=== PATIENT | male | born 1960 | race Caucasian/White ===

== ENCOUNTER 2019-03-02 15:48 | Emergency (ER) | payer BC ==
[~2019-03-02] VITALS: Ht 175.3 cm; Wt 81.6 kg
--- NOTE | 2019-03-02 16:49 | PHYS DOC ---
Past Medical History Past Medical History: Arthritis (rheumatoid) Past Surgical History: Other (L elbow) Smoking: Less than 1pk/day Alcohol Use: None Drug Use: None Adult General Chief Complaint Chief Complaint: NEURO SYMPTOMS/DEFICITS [facility] HPI Patient is a 58 year old male who presents to the emergency department, accompanied by his , with complaints of feeling lightheaded since 11:00 this morning. Patient states he was at work when he began to feel lightheaded and nauseated, he felt like he had a hard time walking straight line. Patient states he tried go to the bathroom thinking that would make him feel better but it didn't. He went to the [employer] nurse who checked his blood pressure and told him that it was high. Patient reports a dull headache at this time, his pain is a 0 out of 10, there are no alleviating or exacerbating factors. ROS Patient denies any fever, ear pain, ringing in ears, cough, vomiting, abdominal pain, or diarrhea. He denies any chest pain, palpitations, or diaphoresis. He reports nausea with the symptoms. He denies any vision changes, speech dif ficulties, or weakness. Patient's only medical history is rheumatoid arthritis and he smokes half pack of cigarettes a day. All other ROS is neg unless otherwise noted in HPI. Review of Systems Review of Systems See AboveConstitutional: Denies fever or chills [] Eyes: Denies change in visual acuity, redness, or eye pain [] HENT: Denies nasal congestion or sore throat [] Respiratory: Denies cough or shortness of breath [] Cardiovascular: No additional information not addressed in HPI [] GI: Denies abdominal pain, nausea, vomiting, bloody stools or diarrhea [] : Denies dysuria or hematuria [] Musculoskeletal: Denies back pain or joint pain [] Integument: Denies rash or skin lesions [] Neurologic: Denies headache, focal weakness or sensory changes [] Endocrine: Denies polyuria or polydipsia [] All other systems were reviewed and found to be within normal limits, except as documented in this note. Current Medications Current Medications Current Medications Medications (Trade) Dose Ordered Sig/Selene Start Time Stop Time Status Last Admin Dose Admin Aspirin (Julieta Aspirin) 325 mg 1X ONCE 03/02/19 17:00 03/02/19 17:25 DC 03/02/19 17:35 325 MG Sodium Chloride 1,000 ml @ 1,000 mls/hr 1X ONCE 03/02/19 18:15 03/02/19 19:14 DC 03/02/19 18:09 1,000 MLS/HR Allergies Allergies Allergies Coded Allergies Type Severity Reaction Last Updated Verified No Known Drug Allergies 03/02/19 No Physical Exam Physical Exam See Above Constitutional: Well developed, well nourished, no acute distress, non-toxic appearance. [] HENT: Normocephalic, atraumatic, bilateral external ears normal, nose normal. [] Eyes: PERRLA, EOMI, conjunctiva normal, no discharge. [] Neck: Normal range of motion, no stridor. [] Cardiovascular:Heart rate regular rhythm, no murmur [] Lungs & Thorax: Bilateral breath sounds clear to auscultation [] Abdomen: soft, no tenderness, no masses, no pulsatile masses. [] Skin: Warm, dry, no erythema, no rash. [] Back: No tenderness, no CVA tenderness. [] Extremities: No cyanosis, no clubbing, ROM intact, no edema. [] Neurologic: Alert and oriented X 3, normal motor function, normal sensory function, no focal deficits noted, see NIH stroke assessment. [] Psychologic: Affect normal, judgement normal, mood normal. [] Current Patient Data Vital Signs Vital Signs Date Time Temp Pulse Resp B/P (MAP) Pulse Ox O2 Delivery O2 Flow Rate FiO2 03/02/19 18:40 58 16 97 03/02/19 16:03 97.5 145/92 (109) Room Air 97.5 Lab Values Laboratory Tests Test 03/02/19 17:15 03/02/19 17:30 Urine Collection Type Unknown Urine Color Yellow Urine Clarity Cloudy Urine pH 7.5 Urine Specific [place] 1.010 Urine Protein Negative mg/dL (NEG-TRACE) Urine Glucose (UA) Negative mg/dL (NEG) Urine Ketones (Stick) Negative mg/dL (NEG) Urine Blood Negative (NEG) Urine Nitrite Negative (NEG) Urine Bilirubin Negative (NEG) Urine Urobilinogen Dipstick 0.2 mg/dL (0.2 mg/dL) Urine Leukocyte Esterase Negative (NEG) Urine RBC 0 /HPF (0-2) Urine WBC Occ /HPF (0-4) Urine Squamous Epithelial Cells Occ /LPF Urine Amorphous Sediment Present /HPF Urine Bacteria 0 /HPF (0-FEW) Urine Hyaline Casts Occasional /HPF Urine Granular Casts Occasional /HPF Urine Mucus Slight /LPF White Blood Count 7.0 x10^3/uL (4.0-11.0) Red Blood Count 4.42 x10^6/uL (4.30-5.70) Hemoglobin 15.0 g/dL (13.0-17.5) Hematocrit 43.8 % (39.0-53.0) Mean Corpuscular Volume 99 fL (79-100) Mean Corpuscular Hemoglobin 34 pg (25-35) Mean Corpuscular Hemoglobin Concent 34 g/dL (31-37) Red Cell Distribution Width 14.2 % (11.5-14.5) Platelet Count 215 x10^3/uL (140-400) Neutrophils (%) (Auto) 86 % (31-73) H Lymphocytes (%) (Auto) 9 % (24-48) L Monocytes (%) (Auto) 5 % (0-9) Eosinophils (%) (Auto) 0 % (0-3) Basophils (%) (Auto) 0 % (0-3) Neutrophils # (Auto) 6.0 x10^3/uL (1.8-7.7) Lymphocytes # (Auto) 0.6 x10^3/uL (1.0-4.8) L Monocytes # (Auto) 0.3 x10^3/uL (0.0-1.1) Eosinophils # (Auto) 0.0 x10^3/uL (0.0-0.7) Basophils # (Auto) 0.0 x10^3/uL (0.0-0.2) Segmented Neutrophils % 84 % (35-66) H Band Neutrophils % 2 % (0-9) Lymphocytes % 5 % (24-48) L Atypical Lymphocytes % (Manual) 1 % (0-0) H Monocytes % 8 % (0-10) Platelet Estimate Adequate (ADEQUATE) Prothrombin Time 12.9 SEC (11.7-14.0) Prothrombin Time INR 1.0 (0.8-1.1) Activated Partial Thromboplast Time 28 SEC (24-38) Sodium Level 141 mmol/L (136-145) Potassium Level 4.3 mmol/L (3.5-5.1) Chloride Level 104 mmol/L (98-107) Carbon Dioxide Level 28 mmol/L (21-32) Anion Gap 9 (6-14) Blood Urea Nitrogen 11 mg/dL (8-26) Creatinine 1.0 mg/dL (0.7-1.3) Estimated GFR (Cockcroft-Gault) 76.5 BUN/Creatinine Ratio 11 (6-20) Glucose Level 130 mg/dL (70-99) H Calcium Level 9.0 mg/dL (8.5-10.1) Magnesium Level 2.3 mg/dL (1.8-2.4) Total Bilirubin 0.3 mg/dL (0.2-1.0) Aspartate Amino Transferase (AST) 18 U/L (15-37) Alanine Aminotransferase (ALT) 24 U/L (16-63) Alkaline Phosphatase 69 U/L (46-116) Creatine Kinase 65 U/L (39-308) Creatine Kinase MB (Mass) 1.5 ng/mL (0.0-3.6) Creatine Kinase MB Relative Index % (0-4) Troponin I Quantitative < 0.017 ng/mL (0.000-0.055) Total Protein 6.9 g/dL (6.4-8.2) Albumin 3.7 g/dL (3.4-5.0) Albumin/Globulin Ratio 1.2 (1.0-1.7) Laboratory Tests 03/02/19 17:30 Laboratory Tests 03/02/19 17:30 EKG EKG [] Radiology/Procedures Radiology/Procedures cxr- No acute findings CT head- No acute intracranial findings[] Course & Med Decision Making Course & Med Decision Making Pertinent Labs and Imaging studies reviewed. (See chart for details) dx: hypertension, light-headed feeling PT was given 1L NS and 325 of ASA in the ER. His stroke scree was negative for any neuro deficits. CBC unremarkable, CMP glucose of 130 otherwise unremarkable, Pt/INR WNL, UA unremarkable VSS in the ER BP remained elevated 140's/90's Pt reported feeling better after medications. He was advised to follow up with his PCP for BP management. Patient verbalized an understanding of home care, medications, follow-up, and return to ED instructions and was in agreement with the plan of care. [] Dragon Disclaimer Dragon Disclaimer This electronic medical record was generated, in whole or in part, using a voice recognition dictation system. Departure Departure Impression: Primary Impression: Hypertension Additional Impression: Light-headed feeling Disposition: 01 HOME, SELF-CARE Condition: STABLE Referrals: DOLORES HALL MD (PCP) Patient Instructions: Hypertension, [id number] Additional Instructions: Follow up with your primary care doctor this week, return to the ER if your symptoms worsen. NIHSS Stroke Scale NIH Stroke Scale: NIH Stroke Scale Response (Comments) Value Level of Consciousness: 0 Alert/Responsive 0 LOC Questions: 0 Answers both correctly 0 LOC Commands: 0 Performs both tasks 0 Best Gaze: 0 Normal 0 Visual: 0 No visual loss 0 Facial Palsy: 0 Normal, symmetrical 0 Motor - Left Arm 0 No drift 0 Motor - Right Arm 0 No drift 0 Motor - Left Leg 0 No drift 0 Motor: Right Leg 0 No drift 0 Limb Ataxia: 0 Absent 0 Sensory: 0 No loss 0 Best Language: 0 Normal 0 Dysathria: 0 Normal 0 Extinction and Inattention: 0 Normal 0 Total 0 Problem Qualifiers Primary Impression: Hypertension Hypertension type: unspecified Qualified Codes: I10 - Essential (primary) hypertension PASCUAL MALHOTRA [employer] Mar 02, 2019 16:49
[2019-03-02] MEDS ORDERED: ASPIRIN 325 MG TABLET PO ONE (17:00)
[2019-03-02 17:32] LABS: BILIRUBIN,URINE NEGATIVE (NEG); CLARITY,URINE CLOUDY; COLOR,URINE YELLOW; NITRITE,URINE NEGATIVE (NEG); PH,URINE 7.5; PROTEIN,URINE NEGATIVE (NEG-TRACE); UROBILINOGEN,URINE 0.2 mg/dL (0.2 mg/dL)
[2019-03-02 17:37] LABS: BASO % 0 % (0-3); EOS % 0 % (0-3); HEMATOCRIT 43.8 % (39.0-53.0); LYMPH # 0.6 x10^3/uL (1.0-4.8); LYMPH % 9 % (24-48); MEAN CORPUSCULAR HEMOGLOBIN 34 pg (25-35); MEAN CORPUSCULAR HGB CONC 34 g/dL (31-37); MEAN CORPUSCULAR VOLUME 99 fL (79-100); MONO # 0.3 x10^3/uL (0.0-1.1); MONO % 5 % (0-9); NEUT % 86 % (31-73); PLATELET COUNT 215 x10^3/uL (140-400); RED BLOOD COUNT 4.42 x10^6/uL (4.30-5.70); RED CELL DISTRIBUTION WIDTH 14.2 % (11.5-14.5)
[2019-03-02 17:47] LABS: GFR 76.5; POTASSIUM 4.3 mmol/L (3.5-5.1)
[2019-03-02 17:48] LABS: BACTERIA,URINE 0 /HPF (0-FEW); RBC,URINE 0 /HPF (0-2); WBC,URINE OCC /HPF (0-4)
[2019-03-02 17:49] LABS: PROTHROMBIN TIME PATIENT 12.9 SEC (11.7-14.0)
[2019-03-02 17:49] LABS: AMORPHOUS SEDIMENT,UR PRESENT /HPF; GRANULAR CASTS,URINE OCCASIONAL /HPF; HYALINE CASTS, URINE OCCASIONAL /HPF; SQUAMOUS EPITHELIAL CELL,UR OCC /LPF
[2019-03-02 17:54] LABS: ALBUMIN 3.7 g/dL (3.4-5.0); ALBUMIN/GLOBULIN RATIO 1.2 (1.0-1.7); MAGNESIUM 2.3 mg/dL (1.8-2.4); TOTAL BILIRUBIN 0.3 mg/dL (0.2-1.0); TOTAL PROTEIN 6.9 g/dL (6.4-8.2)
[2019-03-02 18:07] LABS: CREATINE KINASE 65 U/L (39-308)
[2019-03-02] MEDS ORDERED: IV NORMAL SALINE 1000ML BAG 1,000 ML IV ONE (18:15)
[2019-03-02 18:29] LABS: % ATYL 1 % (0-0); % BANDS 2 % (0-9); % LYMPHS 5 % (24-48); % MONOS 8 % (0-10); % SEGS 84 % (35-66); PLT ESTIMATE ADEQUATE (ADEQUATE)
[2019-03-02 18:40] VITALS: BP 131/78
--- NOTE | 2019-03-03 06:33 | EKG ---
[facility] [address] [place] [address] Test Date: 2019-03-02 Test Time: 16:42:34 Pat Name: GRACE JONES Department: Room: Gender: [employer] Cover Treater: : 1960 Requested By: PASCUAL MALHOTRA Order Number: [id number] Reading MD: Measurements Intervals [place] Rate: 61 P: 31 SD: 166 QRS: 28 QRSD: 78 T: 11 QT: 388 QTc: 392 Interpretive Statements Cannot analyze ECG CHEST LEAD(S) MISSING! (Measurements might be questionable) RI6.01 Unconfirmed report No previous ECG available for comparison
--- NOTE | 2019-03-03 09:27 | RAD ---
EXAM: Head CT without contrast. HISTORY: Lightheaded. Difficulty walking straight. TECHNIQUE: Computed tomographic images of the head were obtained without contrast. *One or more of the following individualized dose reduction techniques were utilized for this examination: 1. Automated exposure control. 2. Adjustment of the mA and/or kV according to patient size. 3. Use of iterative reconstruction technique. COMPARISON: None. FINDINGS: There is no acute or subacute extra-axial or intraparenchymal hemorrhage. There is no mass effect or midline shift. There is no hydrocephalus. The [id number] matter differentiation pattern is intact. The visualized portions of the orbits, paranasal sinuses and mastoid air cells are unremarkable. No suspicious calvarial lesion is seen. IMPRESSION: No acute intracranial finding. Note is made that MRI is more sensitive for acute infarction. Electronically signed by: Maura Mccollum MD (03/02/2019 4:53 PM) [facility] MTDMarija
--- NOTE | 2019-03-03 09:28 | RAD ---
EXAM: Chest, single view. HISTORY: Shortness of air. COMPARISON: None. FINDINGS: A frontal view of the chest is obtained. The right costophrenic angle is excluded from the [id number]. There is no infiltrate, pleural effusion or pneumothorax. The heart is normal in size. IMPRESSION: No acute pulmonary finding. Electronically signed by: Maura Mccollum MD (03/02/2019 4:47 PM) [facility] MTDD
== END 2019-03-02 19:20 | disposition home or self-care (01) ==
LOC: ER 15:48
DX: I10 Essential (primary) hypertension (principal); R42 Dizziness and giddiness; R51 Headache; R06.02 Shortness of breath
CPT/HCPCS: 36415; 70450; 71045; 80053; 81001; 82553; 83735; 84484; 85007; 85025; 85610; 85730; 93005; 96360; 99285; J7030